=== PATIENT | male | born 1930 | race Caucasian/White ===

== ENCOUNTER → 2016-12-21 | Outpatient (REF) | payer MEDICARE ==
[~2016-12-21] MED LIST: /OCUVTA PO; /TAMS4CA OR; /TAMS4CA PO; ASPI81TA4 PO; ASPI81TA85 PO; BACITAB3 PO; CIPR250T3 OR; CLOTR1CR EXT; CODE30TA3 PO; COLA100C PO; COLA100C2 OR; FISH1000 PO; FISH100035 PO; LIPI20TA PO; MAGN64TASA PO; MIRA3350 PO; MULTIVIT OR; NORV5TAB PO; OCUVCAP2 PO; OCUVTAB PO; PROBCAP4 PO; SENO8.6T2 PO; VICO5TAB OR; VITA100066 PO; VITMTA PO; [UNRECOGNIZED DRUG - OTHER] PO
[2016-12-21 12:21] LABS: MEAN CORPUSCULAR HEMOGLOBIN 31.6 pg (27.0-33.0); MEAN CORPUSCULAR HGB CONC 32.1 g/dl (32.0-36.5); MEAN CORPUSCULAR VOLUME 98.4 fl (80.0-96.0); RED CELL DISTRIBUTION WIDTH 12.8 % (11.5-14.5); WHITE BLOOD COUNT 6.6 K/mm3 (4.0-10.0)
[2016-12-21 12:36] LABS: ALBUMIN 3.4 GM/DL (3.2-5.2); ALBUMIN/GLOBULIN RATIO 1.26 (1.00-1.93); ALKALINE PHOSPHATASE 71 U/L (45-117); ALT/SGPT 15 U/L (12-78); ANION GAP 8 MEQ/L (8-16); AST/SGOT 14 U/L (15-37); BILIRUBIN,TOTAL 0.6 MG/DL (0.2-1.0); BLOOD UREA NITROGEN 18 MG/DL (7-18); CALCIUM LEVEL 8.5 MG/DL (8.8-10.2); CARBON DIOXIDE LEVEL 29 MEQ/L (21-32); CHLORIDE LEVEL 106 MEQ/L (98-107); CHOLESTEROL LEVEL 179 MG/DL (<200); CREATININE FOR GFR 0.89 MG/DL (0.70-1.30); GLOMERULAR FILTRATION RATE > 60.0 (>35); GLUCOSE, FASTING 97 MG/DL (83-110); SODIUM LEVEL 143 MEQ/L (136-145); TOTAL PROTEIN 6.1 GM/DL (6.4-8.2); TRIGLYCERIDES LEVEL 58 MG/DL (<150)
== END ==
LOC: M SFHCPLAZ 08:17
PROVIDERS: ATTEND Internal Medicine
DX: Z87.898 Personal history of other specified conditions (principal); I10 Essential (primary) hypertension; I77.9 Disorder of arteries and arterioles, unspecified

== ENCOUNTER 2016-12-22 08:22 | Emergency (ER) | payer MEDICARE ==
[~2016-12-22] VITALS: Ht 172.7 cm; Wt 86.2 kg
[~2016-12-22 08:22] MED LIST changes: -CODE30TA3 PO; -MIRA3350 PO; -PROBCAP4 PO
[2016-12-22] MEDS ORDERED: PROBCAP4 PO (08:38)
[2016-12-22] MEDS ORDERED: MIRA3350 PO (08:38)
[2016-12-22] MEDS ORDERED: ACETAMINOPH W/CODEINE #3 TAB UD PO ONE ×2 (09:30→10:30)
--- NOTE | 2016-12-22 10:16 | REP ---
RIGHT SHOULDER, THREE VIEWS: REASON: Pain after trauma. There is a comminuted proximal humeral fracture. There is no evidence of dislocation. Signed by Ronal Gutiérrez DO 12/22/2016 11:29 A
--- NOTE | 2016-12-22 10:17 | REP ---
REASON: Pain after trauma. There is a comminuted proximal humeral fracture with partial impaction. Signed by Ronal Gutiérrez DO 12/22/2016 11:29 A
--- NOTE | 2016-12-22 10:57 | REP ---
REASON: Right inferior rib pain on palpation. COMPARISON: Accompanying frontal view of the chest 11/09/2015. Multiple views of the right ribs show the bones to be demineralized. There is no evidence of an acute fracture or destructive osseous lesion. The accompanying frontal view of the chest is essentially unchanged from the prior exam showing chronic basilar changes. There is no pneumothorax. There is a fracture involving the proximal right humerus evaluated on earlier imaging studies today. There is a possible fracture involving the anterior aspect of the right 5th rib. This is seen definitely on one view only. IMPRESSION: Possible Fracture involving the anterior right 5th rib and other findings as described above. Signed by Ronal Gutiérrez DO 12/22/2016 11:31 A
[2016-12-22] MEDS ORDERED: CODE30TA3 PO (11:17)
--- NOTE | 2016-12-22 11:26 | REP ---
REASON: Known proximal humeral fracture. 1 and 3 mm sliced thicknesses were obtained. Coronal and sagittal reconstructions were obtained. There is a comminuted proximal humeral fracture, which is impacted. The glenohumeral relationship itself is maintained. There is no dislocation. There is respiratory motion artifact. This could obscure a rib fracture. There are no additional fractures. The bones are demineralized. IMPRESSION: Proximal humeral fracture as described above. Signed by Ronal Gutiérrez DO 12/22/2016 11:31 A
[2016-12-22 12:05] VITALS: BP 137/72
--- NOTE | 2016-12-22 15:20 | ECGEPIP ---
Stationary ECG Study [facility] Test Date: 2016-12-22 Pat Name: SAEED AYOUB Department: Room: - Gender: M [employer] Supervisor: cameron : 1930 Requested By: SIRENA Solomon PA-C Order Number: [id number] Reading MD: Susanna Chung Measurements Intervals [place] Rate: 79 P: 8 VA: 170 QRS: -50 QRSD: 127 T: -15 QT: 394 QTc: 454 Interpretive Statements SINUS RHYTHM WITH OCCASIONAL SUPRAVENTRICULAR PREMATURE COMPLEXES RIGHT BUNDLE BRANCH BLOCK LAFB VOLTAGE CRITERIA FOR LVH INFERIOR MYOCARDIAL INFARCTION, OF INDETERMINATE AGE PACS NEW C/W 11/09/15 Electronically Signed On 12-22-2016 15:20:19 EST by Susanna Chung
== END 2016-12-22 12:25 | disposition home or self-care (01) ==
LOC: M ED 08:51
DX: S42.291A Other displaced fracture of upper end of right humerus, initial encounter for closed fracture (principal); W07.XXXA Fall from chair, initial encounter; Y92.018 Other place in single-family (private) house as the place of occurrence of the external cause; Y93.89 Activity, other specified; Y99.8 Other external cause status; I10 Essential (primary) hypertension; I71.4 Abdominal aortic aneurysm, without rupture; Z79.899 Other long term (current) drug therapy

== ENCOUNTER 2017-01-03 08:18 | Emergency (ER) | payer MEDICARE ==
[~2017-01-03] VITALS: Ht 172.7 cm; Wt 88.5 kg
[~2017-01-03 08:18] MED LIST changes: +CODE30TA3 PO; +MIRA3350 PO; +PROBCAP4 PO
[2017-01-03] MEDS ORDERED: TYLE325T5 PO (08:28)
--- NOTE | 2017-01-03 09:27 | REP ---
Clinical: Trauma. Technique: Internal rotation, external rotation, and Y view of the right shoulder. Findings: There is a comminuted fracture involving the humeral head/neck with subtle anteroinferior subluxation. Underlying osteopenia and degenerative changes are noted. Acromioclavicular joint appears intact. No other fracture or dislocation identified. These findings are similar to 12/22/2016 and no significant periosteal reaction to suggest healing is appreciated on current examination. Impression: Multipartite fracture involving the proximal humerus is again noted. These findings are similar to 12/22/2016 and no significant periosteal reaction to suggest healing is appreciated on current examination. Signed by Tuan Hayward MD 01/03/2017 09:19 A
--- NOTE | 2017-01-03 09:29 | REP ---
Clinical: Trauma. Comparison: 12/22/2016. Findings: Fracture involving the right humeral head is again noted and essentially unchanged when compared to 12/22/2016. The mediastinum and cardiac silhouette are stable with cardiomegaly again suggested. Lung strick[place] demonstrate diffuse chronic changes and right lower lobe atelectasis or small effusion cannot be excluded. No pneumothorax. Impression: Unchanged appearance of the right proximal humeral head fracture. Chronic stable changes. However, cannot exclude right basilar atelectasis or small right pleural effusion. Signed by Tuan Hayward MD 01/03/2017 09:21 A
[2017-01-03 10:03] LABS: BASO % 0.4 % (0.0-1.0); EOS # 0.2 K/mm3 (0.0-0.50); EOS % 3.3 % (0.0-3.0); LARGE UNSTAINED CELL # 0.2 K/mm3 (0.0-0.4); LARGE UNSTAINED CELL % 2.4 % (0.0-4.0); LYMPH # 1.1 K/mm3 (1.5-4.5); LYMPH % 13.7 % (24.0-44.0); MEAN CORPUSCULAR HEMOGLOBIN 32.5 pg (27.0-33.0); MEAN CORPUSCULAR HGB CONC 32.7 g/dl (32.0-36.5); MEAN CORPUSCULAR VOLUME 99.3 fl (80.0-96.0); MONO # 0.4 K/mm3 (0.0-0.8); MONO % 6.2 % (0.0-5.0); PLATELET COUNT, AUTOMATED 413 k/mm3 (150-450); RED CELL DISTRIBUTION WIDTH 13.1 % (11.5-14.5); WHITE BLOOD COUNT 6.8 K/mm3 (4.0-10.0)
--- NOTE | 2017-01-03 10:08 | REP ---
Clinical: Right arm swelling and pain . Technique: Barney scale and color Doppler evaluation using linear high frequency transducer. Findings: Ultrasound examination of the right upper extremity deep venous structures including the visualized jugular, subclavian, axillary, brachial, basilic and cephalic veins demonstrates normal compressibility flow and wave patterns in response to respiration and augmentation. There is no evidence for deep venous thrombosis. Incidental note is made of jugular chain lymph nodes measuring 9.8 mm. Impression: No evidence for deep venous thrombosis of the right upper extremity . Signed by Tuan Hayward MD 01/03/2017 10:00 A
[2017-01-03 10:30] LABS: ANION GAP 7 MEQ/L (8-16); BLOOD UREA NITROGEN 15 MG/DL (7-18); CALCIUM LEVEL 8.6 MG/DL (8.8-10.2); CARBON DIOXIDE LEVEL 30 MEQ/L (21-32); CHLORIDE LEVEL 104 MEQ/L (98-107); CREATININE FOR GFR 0.82 MG/DL (0.70-1.30); GLOMERULAR FILTRATION RATE > 60.0 (>35); GLUCOSE, FASTING 105 MG/DL (83-110); POTASSIUM SERUM 3.9 MEQ/L (3.5-5.1); SODIUM LEVEL 141 MEQ/L (136-145)
[2017-01-03 11:39] VITALS: BP 162/78
--- NOTE | 2017-01-03 21:02 | ECGEPIP ---
Stationary ECG Study [facility] - ED Test Date: 2017-01-03 Pat Name: SAEED AYOUB Department: Room: - Gender: M Accounts Payable Lead: mirna : 1930 Requested By: Luz Aguero Order Number: [id number] Reading MD: Luz Aguero Measurements Intervals [place] Rate: 91 P: 38 MN: 180 QRS: -49 QRSD: 136 T: 11 QT: 367 QTc: 454 Interpretive Statements SINUS RHYTHM RIGHT BUNDLE BRANCH BLOCK VOLTAGE CRITERIA FOR LVH INFERIOR MYOCARDIAL INFARCTION, PROBABLY OLD Electronically Signed On 01-03-2017 21:02:15 EDT by Luz Aguero
== END 2017-01-03 12:19 | disposition home or self-care (01) ==
LOC: M ED 09:26
DX: S42.201D Unspecified fracture of upper end of right humerus, subsequent encounter for fracture with routine healing (principal); W07.XXXD Fall from chair, subsequent encounter; I71.4 Abdominal aortic aneurysm, without rupture; K57.32 Diverticulitis of large intestine without perforation or abscess without bleeding; Z87.442 Personal history of urinary calculi; N40.0 Benign prostatic hyperplasia without lower urinary tract symptoms; Z79.899 Other long term (current) drug therapy; M79.89 Other specified soft tissue disorders

== ENCOUNTER → 2017-04-19 | Outpatient (REF) | payer MEDICARE ==
[~2017-04-19] MED LIST changes: +BACITAB PO; -BACITAB3 PO; -COLA100C PO; +COLA100C5 PO; -SENO8.6T2 PO; +SENO8.6T5 PO; +TYLE325T5 PO
[2017-04-19 10:43] LABS: MEAN CORPUSCULAR HEMOGLOBIN 32.8 pg (27.0-33.0); MEAN CORPUSCULAR HGB CONC 33.3 g/dl (32.0-36.5); MEAN CORPUSCULAR VOLUME 98.6 fl (80.0-96.0); RED CELL DISTRIBUTION WIDTH 13.1 % (11.5-14.5); WHITE BLOOD COUNT 8.2 K/mm3 (4.0-10.0)
[2017-04-19 11:09] LABS: ALBUMIN 3.2 GM/DL (3.2-5.2); ALBUMIN/GLOBULIN RATIO 1.14 (1.00-1.93); ALKALINE PHOSPHATASE 77 U/L (45-117); ALT/SGPT 14 U/L (12-78); ANION GAP 7 MEQ/L (8-16); AST/SGOT 16 U/L (15-37); BILIRUBIN,TOTAL 0.7 MG/DL (0.2-1.0); BLOOD UREA NITROGEN 14 MG/DL (7-18); CALCIUM LEVEL 8.8 MG/DL (8.8-10.2); CARBON DIOXIDE LEVEL 29 MEQ/L (21-32); CHLORIDE LEVEL 106 MEQ/L (98-107); CHOLESTEROL LEVEL 172 MG/DL (<200); CREATININE FOR GFR 0.75 MG/DL (0.70-1.30); GLOMERULAR FILTRATION RATE > 60.0 (>35); GLUCOSE, FASTING 81 MG/DL (83-110); SODIUM LEVEL 142 MEQ/L (136-145); TRIGLYCERIDES LEVEL 70 MG/DL (<150)
== END ==
LOC: M SFHCPLAZ 09:00
PROVIDERS: ATTEND Internal Medicine
DX: Z87.898 Personal history of other specified conditions (principal); I10 Essential (primary) hypertension

== ENCOUNTER → 2017-10-21 | Outpatient (REF) | payer MEDICARE ==
[2017-10-21 13:15] LABS: ANION GAP 7 MEQ/L (8-16); BLOOD UREA NITROGEN 17 MG/DL (7-18); CALCIUM LEVEL 8.3 MG/DL (8.8-10.2); CARBON DIOXIDE LEVEL 33 MEQ/L (21-32); CHLORIDE LEVEL 101 MEQ/L (98-107); GLOMERULAR FILTRATION RATE > 60.0 (>35); GLUCOSE, FASTING 95 MG/DL (83-110); MAGNESIUM LEVEL 2.3 MG/DL (1.8-2.4); POTASSIUM SERUM 3.4 MEQ/L (3.5-5.1); SODIUM LEVEL 141 MEQ/L (136-145)
== END ==
LOC: M SFHCPLAZ 07:51
DX: I10 Essential (primary) hypertension (principal)
CPT/HCPCS: 83735